=== PATIENT | female | born 1985 | race Caucasian/White ===

== ENCOUNTER → 2019-07-21 | Outpatient (CLI) | payer BC ==
[~2019-07-21] VITALS: Ht 165.1 cm; Wt 95.4 kg
[~2019-07-21] MED LIST: BIRTHCONTROL; FASTIN30 MG PO; LEVAQUIN 750MG750 M1 PO; LORTAB 5/500 501 TAB PO; NORCO 325 MG-51 TAB PO; PRENATAL1 TA1 PO; SPRINTEC 35 MCG1 TAB PO
[2019-07-21 11:51] VITALS: BP 148/104; PULSE 97
--- NOTE | 2019-07-21 13:35 | NUR ---
pt was discharged, procedure not done, Technologists spoke with ENT Dr office, and Dr Rico spoke with pt in detail, no mass seen today
== END ==
LOC: COL.RAD 11:31
DX: K11.8 Other diseases of salivary glands (principal)